=== PATIENT | male | born 1975 | race Caucasian/White ===

== ENCOUNTER 2017-08-16 02:16 | Emergency (ER) | payer BC ==
[~2017-08-16] VITALS: Ht 172.7 cm; Wt 99.8 kg
[2017-08-16 04:38] VITALS: BP 149/109
== END 2017-08-16 04:38 | disposition home or self-care (01) ==
LOC: ED 02:16
DX: S01.81XA Laceration without foreign body of other part of head, initial encounter (principal); S01.01XA Laceration without foreign body of scalp, initial encounter; F10.129 Alcohol abuse with intoxication, unspecified; I10 Essential (primary) hypertension; E11.9 Type 2 diabetes mellitus without complications; Z79.4 Long term (current) use of insulin; W22.8XXA Striking against or struck by other objects, initial encounter; Y99.8 Other external cause status; Y93.89 Activity, other specified; Y92.89 Other specified places as the place of occurrence of the external cause
CPT/HCPCS: 90715; J2001

== ENCOUNTER 2017-08-23 18:36 | Emergency (ER) | payer BC ==
[~2017-08-23] VITALS: Ht 20975.3 cm; Wt 89.8 kg
[2017-08-23 20:04] VITALS: BP 160/73
== END 2017-08-23 20:00 | disposition home or self-care (01) ==
LOC: ED 18:36
DX: S01.81XD Laceration without foreign body of other part of head, subsequent encounter (principal); I10 Essential (primary) hypertension; E11.9 Type 2 diabetes mellitus without complications; X58.XXXD Exposure to other specified factors, subsequent encounter; Y99.8 Other external cause status; Y92.89 Other specified places as the place of occurrence of the external cause

== ENCOUNTER 2017-08-29 18:51 | Emergency (ER) | payer BC ==
[2017-08-29 19:32] VITALS: BP 165/116
== END 2017-08-29 20:01 | disposition home or self-care (01) ==
LOC: ED 18:51
DX: S01.01XD Laceration without foreign body of scalp, subsequent encounter (principal); I10 Essential (primary) hypertension; E11.9 Type 2 diabetes mellitus without complications; E78.00 Pure hypercholesterolemia, unspecified; X58.XXXD Exposure to other specified factors, subsequent encounter; Y99.8 Other external cause status; Y92.89 Other specified places as the place of occurrence of the external cause